=== PATIENT | male | born 1985 | race Caucasian/White ===

== ENCOUNTER → 2018-06-07 | Outpatient (CLI) | payer BC ==
--- NOTE | 2018-06-07 18:26 | REP ---
PARTIAL LUMBAR SPINE, THREE VIEWS: HISTORY: Injury. There is no acute fracture or subluxation. The L4-5 intervertebral disc is decreased in height consistent with disc degeneration . IMPRESSION: Degenerative change as described above. Electronically Signed by Jad Benties MD 06/07/2018 06:29 P
--- NOTE | 2018-06-07 18:27 | REP ---
LEFT FEMUR, FOUR VIEWS: HISTORY: Injury There is no acute fracture or dislocation. The joint spaces are normal in appearance. IMPRESSION: There is no acute fracture or dislocation. Electronically Signed by Jad Benites MD 06/07/2018 06:29 P
== END ==
LOC: M WUC 17:25
PROVIDERS: ATTEND Physician Assistant
DX: M51.36 Other intervertebral disc degeneration, lumbar region (principal); M25.552 Pain in left hip

== ENCOUNTER → 2020-01-14 | Outpatient (CLI) | payer BC ==
[2020-01-14 10:11] LABS: ALBUMIN 3.9 GM/DL (3.2-5.2); BILIRUBIN,DIRECT 0.1 MG/DL (0.0-0.2); BILIRUBIN,TOTAL 0.3 MG/DL (0.2-1.0); TOTAL PROTEIN 6.9 GM/DL (6.4-8.2)
== END ==
LOC: M LAB 08:43
PROVIDERS: ATTEND Internal Medicine Gastroenterology
DX: R14.0 Abdominal distension (gaseous) (principal); R10.13 Epigastric pain; K21.9 Gastro-esophageal reflux disease without esophagitis; F45.8 Other somatoform disorders

== ENCOUNTER → 2020-01-14 | Outpatient (CLI) | payer BC ==
--- NOTE | 2020-01-23 06:47 | REP ---
ULTRASOUND OF THE ABDOMEN HISTORY: Bloating and abdominal pain. TECHNIQUE: Real-time sonographic evaluation of the abdomen is performed. FINDINGS: Gallbladder demonstrates no evidence of intraluminal sludge or calculi, wall thickening, or pericholecystic fluid. There is no intrahepatic or extrahepatic biliary dilatation, common bile duct measuring 4 mm. The liver demonstrates diffuse heterogeneous hyperechoic echotexture compatible with diffuse fibrofatty infiltration, with a hypoechoic area near the gallbladder likely representing spared parenchyma. No liver mass is seen. Visualized pancreas is grossly unremarkable, but no well seen due to overlying bowel gas. Spleen is normal in size with no intrinsic abnormality, length is 8.7 cm. Kidneys are normal in size and echotexture, right kidney measuring 11.5 x 6.3 x 4.8 cm and left kidney 11.1 x 5.0 x 5.7 cm. There is no renal mass or hydronephrosis. Abdominal aorta is normal in caliber with no aneurysm, proximally measuring 1.7 cm and distally 1.8 cm. No ascites are seen. IMPRESSION: Diffuse fibrofatty infiltration of the liver. Otherwise unremarkable abdominal ultrasound. MTDD
== END ==
LOC: M RAD 08:04
PROVIDERS: ATTEND Nurse Practitioner Family
DX: R14.0 Abdominal distension (gaseous) (principal); R10.13 Epigastric pain; K21.9 Gastro-esophageal reflux disease without esophagitis; F45.8 Other somatoform disorders

== ENCOUNTER → 2020-03-31 | Outpatient (CLI) | payer BC ==
--- NOTE | 2020-03-31 09:04 | REP ---
INDICATION: M54.5, LOW BACK PAIN. COMPARISON: 06/07/2018. TECHNIQUE: Five views. FINDINGS: Vertebral body heights and alignment are normal. There is mild scoliosis convex left at the thoracolumbar junction. There are small osteophytes anteriorly at the L2-3 disc space indicating mild degenerative disc disease at this level. Disc spaces are otherwise unremarkable. The pedicles, facets and sacroiliac articulations are unremarkable. IMPRESSION: Mild scoliosis as described. Mild L2-3 degenerative disc disease. <Electronically signed by Ricardo Escalera > 03/31/20 0901
== END ==
LOC: M CLY 08:07
PROVIDERS: ATTEND Physician Assistant
DX: M54.5 Low back pain (principal)

== ENCOUNTER → 2020-03-31 | Outpatient (REF) | payer BC ==
[2020-03-31 12:20] LABS: BASO % 0.5 % (0.0-1.0); EOS # 0.3 10^3/uL (0.0-0.5); HEMATOCRIT 45.1 % (42.0-52.0); HEMOGLOBIN 14.9 g/dl (13.5-17.5); LYMPH # 1.5 10^3/uL (1.5-5.0); LYMPH % 26.9 % (24.0-44.0); MEAN CORPUSCULAR HEMOGLOBIN 29.4 pg (27.0-33.0); MONO # 0.5 10^3/uL (0.0-0.8); MONO % 8.7 % (0.0-5.0); NEUTROPHILS # 3.2 10^3/uL (1.5-8.5); NEUTROPHILS % 57.5 % (36.0-66.0); PLATELET COUNT, AUTOMATED 293 10^3/uL (150-450); RED BLOOD COUNT 5.07 10^6/uL (4.30-6.10); WHITE BLOOD COUNT 5.5 10^3/uL (4.0-10.0)
[2020-03-31 12:31] LABS: ALBUMIN 4.2 GM/DL (3.2-5.2); ALT/SGPT 51 U/L (12-78); BILIRUBIN,TOTAL 0.4 MG/DL (0.2-1.0); BLOOD UREA NITROGEN 15 MG/DL (7-18); CALCIUM LEVEL 9.2 MG/DL (8.5-10.1); CARBON DIOXIDE LEVEL 31 MEQ/L (21-32); CHLORIDE LEVEL 107 MEQ/L (98-107); CHOLESTEROL LEVEL 153 MG/DL (<200); CHOLESTEROL RISK RATIO 2.353 (<5); CREATININE FOR GFR 0.85 MG/DL (0.70-1.30); FREE T4 0.93 NG/DL (0.76-1.46); GLOMERULAR FILTRATION RATE > 60.0 (>60); GLUCOSE, FASTING 97 MG/DL (70-100); HDL CHOLESTEROL 65 MG/DL (>40); LDL CHOLESTEROL 83 MG/DL (<100); NON-HDL-C 88 MG/DL; POTASSIUM SERUM 4.3 MEQ/L (3.5-5.1); SODIUM LEVEL 140 MEQ/L (136-145); TOTAL PROTEIN 7.2 GM/DL (6.4-8.2); TRIGLYCERIDES LEVEL 27 MG/DL (<150)
[2020-03-31 12:33] LABS: TOTAL 25(OH) VITAMIN D 24.2 NG/ML (30.0-100.0); VITAMIN B12 LEVEL 773 PG/ML
[2020-03-31 12:34] LABS: FOLATE 11.7 NG/ML
[2020-03-31 12:43] LABS: ERYTHROCYTE SEDIMENTATION RATE 2 mm/hr (0-15)
[2020-03-31 12:46] LABS: APPEARANCE, URINE CLEAR (CLEAR); BACTERIA, URINE AUTO NEGATIVE (NEGATIVE); BILIRUBIN, URINE AUTO NEGATIVE (NEGATIVE); BLOOD, URINE BLOOD NEGATIVE (NEGATIVE); COLOR, URINE YELLOW (YELLOW); GLUCOSE, URINE (UA) AUTO NEGATIVE (NEGATIVE); KETONE, URINE AUTO NEGATIVE (NEGATIVE); LEUKOCYTE ESTERASE, URINE AUTO NEGATIVE (NEGATIVE); MUCUS, URINE SMALL (NEGATIVE); NITRITE, URINE AUTO NEGATIVE (NEGATIVE); PROTEIN, URINE AUTO NEGATIVE (NEGATIVE); RBC, URINE AUTO 1 /HPF (0-3); SPECIFIC GRAVITY URINE AUTO 1.016 (1.002-1.035); SQUAMOUS EPITHELIAL CELL UR AU 0 /HPF (0-6); UROBILINOGEN, URINE AUTO 0.2 mg/dL (0.0-2.0); WBC, URINE AUTO 0 /HPF (0-3)
[2020-04-01 15:08] LABS: Lyme Disease IgG/IgM Antibodie <0.91 ISR (0.00-0.90); Lyme Disease IgM Ab Quantitati <0.80 index (0.00-0.79)
== END ==
LOC: M SFHCCLAY 07:56
PROVIDERS: ATTEND Physician Assistant
DX: R53.83 Other fatigue (principal); Z13.6 Encounter for screening for cardiovascular disorders

== ENCOUNTER 2020-10-21 18:50 | Emergency (ER) | payer BC ==
[~2020-10-21] VITALS: Ht 180.3 cm; Wt 75.0 kg
--- NOTE | 2020-10-21 20:39 | REPVR ---
PROCEDURE INFORMATION: Exam: US Duplex Right Lower Extremity Veins, Limited Exam date and time: 10/21/2020 8:06 PM Age: 35 years old Clinical indication: Pain; Leg, lower; Right; Additional info: Pain, swelling TECHNIQUE: Imaging protocol: Real-time Duplex ultrasound of the Right Lower Extremity with 2-D gonzalez scale, color Doppler flow and spectral waveform analysis with image documentation. Limited exam was focused on the right lower extremity veins. COMPARISON: [facility] FEMUR X-RAY 06/07/2018 5:33 PM FINDINGS: Right deep veins: Unremarkable. The common femoral, femoral, proximal profunda femoral and popliteal veins are patent without thrombus. Normal Doppler waveforms. Normal compressibility and/or augmentation response. Right superficial veins: Unremarkable. Saphenofemoral junction is patent without thrombus. Soft tissues: Unremarkable. IMPRESSION: No deep venous thrombosis. Electronically signed by: Dawson Heredia On 10/21/2020 20:38:48 PM
[2020-10-21 22:35] VITALS: BP 116/75
== END 2020-10-21 22:53 | disposition home or self-care (01) ==
LOC: M ED 18:50
DX: M25.461 Effusion, right knee (principal); M79.604 Pain in right leg